=== PATIENT | female | born 1995 | race Caucasian/White ===

== ENCOUNTER 2020-09-03 03:05 | Emergency (ER) | payer OTHER ==
[~2020-09-03] VITALS: Ht 162.6 cm; Wt 52.2 kg
[2020-09-03] MEDS ORDERED: PENICILLIN V P500 MG PO (04:06)
[2020-09-03] MEDS ORDERED: ACETAMINOPHEN-1 EAC2 PO (04:06)
[2020-09-03 04:21] VITALS: BP 106/67
== END 2020-09-03 04:21 | disposition home or self-care (01) ==
LOC: M.ERS 03:05
DX: H92.01 Otalgia, right ear (principal); A69.1 Other Vincent's infections; Z88.6 Allergy status to analgesic agent; Z90.89 Acquired absence of other organs